=== PATIENT | female | born 1945 | race Caucasian/White ===

== ENCOUNTER 2016-10-06 16:16 | Observation (INO) | payer MEDICARE, BC ==
[~2016-10-06] VITALS: Ht 157.5 cm; Wt 53.9 kg
[~2016-10-06 16:16] MED LIST: ACETYL L-CARNITINE PO; ALDACTONE 25MG25 M1 PO; AMITRIPTYLINE50 MG PO; B-121000 MCG PO; BENADRYL25 M2 PO; BUMETANIDE1 MG PO; BUMEX 1MG TA1 MG/TA1 PO; CALCIUM 6001 TA1 PO; CALCIUM1 CAP PO; CARDI-OMEGA1000 MG PO; CARNITOR330 MG PO; CHLOR-TABS4 MG PO; CHLORTAB-44 MG PO; DEPO ESTRADIOL; DEPO-ESTRADIO5 MG/ML IM; ELAVIL150 MG PO; FISH OIL PO; FOLIC ACID 11 MG/TA1 PO; FOLIC ACID 40400 MCG PO; GABAPENTIN800 MG PO; HYDROCHLOROTH12.5 MG PO; JOINT ADVANTAGE; KLOR-CON M1010 MEQ; LEVOTHYROXIN0.125 MG PO; LIDODERM5% TP; LIORESAL 1010 MG/TAB PO; NATURAL E400 IU PO; NATURE'S BLEND100 M2 PO; NEURONTIN400 MG/CAP PO; OXY IR5 MG PO; OXYCODONE5 MG PO; PANTOPRAZOLE40 MG PO; PERCOCET 325 MG1 TAB PO; PLAVIX 75MG TAB75 MG PO; POTASS CHL20 MEQ/15 PO; PRILOSEC 20MG20 MG PO; RISPERDAL1 MG PO; SEE INSTRUCTIONS IT; SYNTHROID0.137 MG PO; TOPROL XL 25MG25 MG PO; TRIMETHOPRIM SU; VIT B 12 IM; VIT B1 PO; VIT D; VIT D3; VIT E; VITAMIN B-1100 MG PO; VITAMIN D32000 IU PO; VITAMIN E1000 U/CAP PO; ZANTAC150 MG PO; ZITHROMAX 250M250 MG PO; [UNRECOGNIZED DRUG - CODE]; [UNRECOGNIZED DRUG - CODE]; [UNRECOGNIZED DRUG - OTHER]; [UNRECOGNIZED DRUG - OTHER] PO; [UNRECOGNIZED DRUG - OTHER] PO
[2016-10-06 17:25] LABS: BASO % 0.5 % (0.0-2.0); EOS # 0.1 (0.0-0.7); EOS % 1.9 % (0-4.0); GRAN # 3.1 (1.4-6.5); GRAN % 49.2 % (42.2-75.2); LYMPH # 2.5 (1.2-3.4); LYMPH % 39.1 % (20.0-51.0); MEAN CELL VOLUME 90 fl (80.0-100.0); MEAN CORPUSCULAR HGB CONC 31 g/dl (33.0-37.0); MEAN PLATELET VOLUME 9.7 fl (7.4-10.4); MONO # 0.6 (0.1-0.6); MONO % 9.1 % (1.7-9.3); PLATELET COUNT 335 K/mm3 (130-400); REDCELL DISTRIBUTION WIDTH-CV 14.6 % (11.5-14.5); WHITE BLOOD COUNT 6.3 K/mm3 (4.8-10.8)
[2016-10-06 17:28] LABS: HEMATOCRIT 31.5 % (37.0-47.0); HEMOGLOBIN 9.8 g/dl (12.5-16.0); MEAN CORPUSCULAR HEMOGLOBIN 28 pg (27.0-31.0)
[2016-10-06 17:40] LABS: ADJUSTED CALCIUM 8.9 mg/dL (8.4-10.2); ALBUMIN 3.9 gm/dL (3.5-5.0); BILIRUBIN,TOTAL 0.6 mg/dL (0.0-1.0); CALCIUM 8.8 mg/dL (8.4-10.2); CREATININE, serum 1.49 mg/dL (0.52-1.25); MAGNESIUM 1.9 mg/dL (1.6-2.3); POTASSIUM 3.1 mmol/L (3.4-5.0); TOTAL PROTEIN 6.9 gm/dL (6.4-8.2)
[2016-10-06] MEDS ORDERED: PLAVIX 75MG TAB75 MG PO (17:42)
[2016-10-06] MEDS ORDERED: MORPHINEPCA IL (17:46)
[2016-10-06] MEDS ORDERED: DILAUDID 4MG TAB4 MG PO (17:46)
[2016-10-06] MEDS ORDERED: DAZIDOX10 MG PO (17:49)
[2016-10-06] MEDS ORDERED: OXYCONTIN60 MG PO (19:22)
[2016-10-06 20:21] VITALS: BP 110/61; PULSE 85; TEMP 98.5
[2016-10-06 20:52] LABS: THYROID STIMULATING HORMONE 1.77 uIU/mL (0.465-4.680)
[2016-10-06 22:15] LABS: PH 5 (5-8); SQUAMOUS EPITHELIAL None Seen /hpf; URINE APPEARANCE Cloudy; URINE BACTERIA None Seen /hpf; URINE BILIRUBIN Negative (NEGATIVE); URINE BLOOD 1+ (NEGATIVE); URINE COLOR Amber; URINE GLUCOSE Negative (NEGATIVE); URINE KETONE Negative (NEGATIVE); URINE UROBILINOGEN Negative (NEGATIVE); URINE WBC 0-2 /hpf
[2016-10-06 23:15] VITALS: BP 103/27; PULSE 74; TEMP 97.5
[2016-10-07 04:32] VITALS: BP 136/63; PULSE 72; TEMP 97.5
[2016-10-07 08:22] LABS: CALCIUM 8.4 mg/dL (8.4-10.2); CREATININE, serum 1.12 mg/dL (0.52-1.25); POTASSIUM 3.4 mmol/L (3.4-5.0)
[2016-10-07 08:26] LABS: BASO % 0.4 % (0.0-2.0); EOS # 0.3 (0.0-0.7); EOS % 5.5 % (0-4.0); GRAN # 2.2 (1.4-6.5); LYMPH # 2.2 (1.2-3.4); LYMPH % 42.3 % (20.0-51.0); MEAN CELL VOLUME 91 fl (80.0-100.0); MEAN CORPUSCULAR HGB CONC 31 g/dl (33.0-37.0); MONO # 0.5 (0.1-0.6); MONO % 9.6 % (1.7-9.3); PLATELET COUNT 295 K/mm3 (130-400); RED BLOOD COUNT 3.17 M/mm3 (4.10-5.30); REDCELL DISTRIBUTION WIDTH-CV 14.5 % (11.5-14.5); WHITE BLOOD COUNT 5.3 K/mm3 (4.8-10.8)
[2016-10-07 08:31] LABS: HEMATOCRIT 28.8 % (37.0-47.0); MEAN CORPUSCULAR HEMOGLOBIN 28 pg (27.0-31.0)
[2016-10-07 08:51] VITALS: BP 105/54; PULSE 67; TEMP 97.5
[2016-10-07 11:54] VITALS: BP 105/92; PULSE 86; TEMP 98.3
[2016-10-07 16:19] VITALS: BP 118/39; PULSE 82; TEMP 98
== END 2016-10-07 16:30 | disposition home or self-care (01) ==
LOC: COL.ER 16:16 → MEDICAL 18:25
PROVIDERS: Emergency Medicine; Nurse Practitioner Family
DX: R55 Syncope and collapse (principal); N17.9 Acute kidney failure, unspecified; A69.20 Lyme disease, unspecified; I38 Endocarditis, valve unspecified; I10 Essential (primary) hypertension; E03.9 Hypothyroidism, unspecified; G89.4 Chronic pain syndrome; D64.9 Anemia, unspecified
CPT/HCPCS: G0378; J7030